=== PATIENT | female | born 1985 | race Caucasian/White ===

== ENCOUNTER 2020-07-02 20:53 | Emergency (ER) | payer BC ==
[2020-07-02 22:12] LABS: Hemoglobin 14.9 g/dL (12.0-15.5); Mean Corpuscular Hemoglobin 28.1 pg (27.0-33.0); Mean Corpuscular Volume 82.6 fl (81.6-98.3); Mean Platelet Volume 8.6 fl (7.4-10.4); Platelet Count 451 10x3/uL (150-450); RBC Distribution Width 12.6 % (11.5-14.5); White Blood Cell (WBC) Count 13.1 10x3/uL (3.5-10.5)
[2020-07-02 22:30] LABS: ALT (SGPT) 29 U/L (8-55); AST (SGOT) 15 U/L (5-34); Albumin 4.3 g/dL (3.5-5.0); Alkaline Phosphatase 81 U/L (40-110); Anion Gap 14 mmol/L (10-20); BUN (Urea Nitrogen) 16 mg/dL (7.0-18.7); Bilirubin, Total 0.2 mg/dL (0.2-1.2); Calc. Creatinine Clearance 0 mL/min (70-130); Calcium 10.1 mg/dL (7.8-10.44); Carbon Dioxide 26 mmol/L (22-29); Chloride 102 mmol/L (98-107); Globulin 3.6 g/dL (2.4-3.5); Glucose 112 mg/dL (70-105); Lipase 98 U/L (8-78); Potassium 4.3 mmol/L (3.5-5.1); Protein, Total 7.9 g/dL (6.0-8.3); Sodium 138 mmol/L (136-145)
[2020-07-02 22:32] LABS: Band 5 % (5-11); Eosinophils 3 % (0-10); Lymphocytes 32 % (21-51); Monocytes 10 % (0-10); Reactive Lymphocytes 2 % (0-10)
[2020-07-02 22:33] LABS: MDiff Complete? YES; Manual Diff?? YES; Neutrophil 48 % (42-75)
[2020-07-02 22:35] LABS: Platelet Morphology Comment Appears Adequate
[2020-07-02 23:07] LABS: BHCG - Serum Negative (NEGATIVE); Pregs Control Background? CLEAR/WHITE (CLR/WHITE); Pregs Control Bar Appear? YES (CONTROL BAR)
== END 2020-07-03 01:36 | disposition home or self-care (01) ==
LOC: CSHERS 20:53
DX: K82.4 Cholesterolosis of gallbladder (principal); K76.9 Liver disease, unspecified; R74.8 Abnormal levels of other serum enzymes
CPT/HCPCS: 71046; 76705; 80053; 83690; 84484; 84703; 85025; 93005

== ENCOUNTER 2022-02-19 18:21 | Emergency (ER) | payer BC ==
[2022-02-19] MEDS ORDERED: Ketorolac Tromethamine 30 MG/ML VIAL ONE (19:38)
== END 2022-02-19 20:57 | disposition home or self-care (01) ==
LOC: CSHERS 18:21
DX: S63.502A Unspecified sprain of left wrist, initial encounter (principal); S63.8X2A Sprain of other part of left wrist and hand, initial encounter; W19.XXXA Unspecified fall, initial encounter
CPT/HCPCS: 96372; J1885

== ENCOUNTER 2022-02-20 10:50 | Emergency (ER) | payer BC ==
[2022-02-20] MEDS ORDERED: Ketorolac Tromethamine 30 MG/ML VIAL ONE (11:04)
== END 2022-02-20 11:39 | disposition home or self-care (01) ==
LOC: CSHERS 10:50
DX: M25.532 Pain in left wrist (principal)
CPT/HCPCS: 96372; 99282; J1885

== ENCOUNTER 2023-03-13 08:58 | Emergency (ER) | payer BC ==
[2023-03-13] MEDS ORDERED: Ketorolac Tromethamine 30 MG (1 mL) VIAL ONE (09:43)
[2023-03-13] MEDS ORDERED: Ondansetron PF 4 MG/2 ML Vial ONE (09:43)
[2023-03-13 10:08] LABS: #Basophils 0.1 10x3/uL (0.0-0.2); #Eosinphils 0.1 10x3/uL (0.0-0.5); %Basophils 0.5 % (0.0-2.0); %Eosinophils 1.2 % (0.0-6.0); %Lymphocytes 7.8 % (18.0-47.0); %Monocytes 8.9 % (0.0-10.0); %Neutrophils 79.9 % (40.0-75.0); Hematocrit 43.9 % (34.9-44.5); Hemoglobin 15.3 g/dL (12.0-15.5); Mean Corpuscular HGB CONC 34.9 g/dL (32.0-36.0); Mean Corpuscular Hemoglobin 28.5 pg (27.0-33.0); Mean Corpuscular Volume 81.8 fl (81.6-98.3); Mean Platelet Volume 8.3 fl (7.4-10.4); Platelet Count 438 10x3/uL (150-450); RBC Distribution Width 12.8 % (11.5-14.5); Red Blood Cell (RBC) Count 5.37 10x6/uL (3.90-5.03); White Blood Cell (WBC) Count 11.2 10x3/uL (3.5-10.5)
[2023-03-13 10:32] LABS: ALT (SGPT) 23 U/L (8-55); AST (SGOT) 13 U/L (5-34); Albumin 4.6 g/dL (3.5-5.0); Alkaline Phosphatase 62 U/L (40-110); Anion Gap 13 mmol/L (10-20); BUN (Urea Nitrogen) 9 mg/dL (7.0-18.7); Bilirubin, Total 0.3 mg/dL (0.2-1.2); Calc. Creatinine Clearance 0 mL/min (70-130); Calcium 9.7 mg/dL (7.8-10.44); Carbon Dioxide 25 mmol/L (22-29); Chloride 100 mmol/L (98-107); Estimated GFR 115; Globulin 3.7 g/dL (2.4-3.5); Glucose 86 mg/dL (70-105); Protein, Total 8.3 g/dL (6.0-8.3); Sodium 134 mmol/L (136-145)
[2023-03-13 10:43] LABS: SARS-CoV-2 NAA Rapid Test Not Detected (NotDetected)
[2023-03-13] MEDS ORDERED: Hydrocodone-Acetamin 15 ML UDCUP ONE (10:53)
== END 2023-03-13 11:30 | disposition home or self-care (01) ==
LOC: CSHERS 08:58
DX: J10.1 Influenza due to other identified influenza virus with other respiratory manifestations (principal)
CPT/HCPCS: 0241U; 71045; 80053; 83605; 85025; 96361; 96374; 96375; J1885; J2405

== ENCOUNTER 2023-04-06 20:31 | Emergency (ER) | payer BC ==
[2023-04-06] MEDS ORDERED: Ondansetron PF 4 MG/2 ML Vial ONE ×2 (21:04→22:18)
[2023-04-06] MEDS ORDERED: Ketorolac Tromethamine 30 MG (1 mL) VIAL ONE (21:04)
[2023-04-06 21:21] LABS: #Eosinphils 0.1 10x3/uL (0.0-0.5); #Monocytes 0.4 10x3/uL (0.0-1.1); %Basophils 0.2 % (0.0-2.0); %Eosinophils 0.5 % (0.0-6.0); %Monocytes 3.4 % (0.0-10.0); %Neutrophils 91.7 % (40.0-75.0); Hemoglobin 16.9 g/dL (12.0-15.5); Mean Corpuscular HGB CONC 35.2 g/dL (32.0-36.0); Mean Corpuscular Hemoglobin 28.4 pg (27.0-33.0); Mean Corpuscular Volume 80.7 fl (81.6-98.3); Mean Platelet Volume 9.2 fl (7.4-10.4); Platelet Count 446 10x3/uL (150-450); Red Blood Cell (RBC) Count 5.95 10x6/uL (3.90-5.03)
[2023-04-06 21:23] LABS: BHCG - Serum Negative (NEGATIVE)
[2023-04-06 21:24] LABS: Pregs Control Background? CLEAR/WHITE (CLR/WHITE); Pregs Control Bar Appear? YES (CONTROL BAR)
[2023-04-06 21:31] LABS: ALT (SGPT) 17 U/L (8-55); AST (SGOT) 15 U/L (5-34); Albumin 5.3 g/dL (3.5-5.0); Alkaline Phosphatase 70 U/L (40-110); Anion Gap 20 mmol/L (10-20); BUN (Urea Nitrogen) 18 mg/dL (7.0-18.7); Bilirubin, Total 0.8 mg/dL (0.2-1.2); Calc. Creatinine Clearance 0 mL/min (70-130); Calcium 10.1 mg/dL (7.8-10.44); Carbon Dioxide 15 mmol/L (22-29); Chloride 109 mmol/L (98-107); Estimated GFR 92; Globulin 3.5 g/dL (2.4-3.5); Glucose 147 mg/dL (70-105); Lipase 19 U/L (8-78); Potassium 3.7 mmol/L (3.5-5.1); Protein, Total 8.8 g/dL (6.0-8.3); Sodium 140 mmol/L (136-145)
[2023-04-06] MEDS ORDERED: Dicyclomine 20 MG/2 ML VIAL ONE (21:50)
[2023-04-06] MEDS ORDERED: Morphine 4 MG/ML VIAL ONE (22:18)
[2023-04-07] MEDS ORDERED: Morphine 4 MG/ML VIAL ONE (02:35)
== END 2023-04-06 23:29 | disposition home or self-care (01) ==
LOC: CSHERS 20:31
DX: K52.9 Noninfective gastroenteritis and colitis, unspecified (principal)
CPT/HCPCS: 80053; 83690; 84703; 85025; 96361; 96372; 96374; 96375; 96376; J1885; J2270; J2405

== ENCOUNTER 2025-02-18 16:40 | Emergency (ER) | payer BC | END 2025-02-18 18:01 | disposition home or self-care (01) | LOC: CSHERS 16:40 | DX: L02.411 Cutaneous abscess of right axilla (principal) | CPT/HCPCS: 99283 ==